=== PATIENT | female | born 1955 | race Caucasian/White ===

== ENCOUNTER 2019-01-05 08:23 | Emergency (ER) | payer OTHER ==
[~2019-01-05] VITALS: Ht 152.4 cm; Wt 56.8 kg
[2019-01-05 09:08] LABS: BASOPHILS % 0.4 % (0.0-2.0); EOSINOPHILS % 0.2 % (0.0-5.0); HEMATOCRIT. 40.7 % (36.0-48.0); HEMOGLOBIN. 13.8 g/dL (12.0-16.0); LYMPHOCYTES % 11.7 % (20.0-50.0); MEAN CORPUSCULAR HEMOGLOBIN 30.9 pg (28.0-32.0); MEAN PLATELET VOLUME 9.1 fl (7.4-10.4); MONOCYTES % 2.9 % (2.0-8.0); NEUTROPHILS % 84.8 % (40.0-76.0); PLATELET 232 x1000/uL (130-400); RED BLOOD CELL COUNT 4.47 mill/uL (4.2-5.4); RED CELL DISTRIBUTION WIDTH 12.6 % (11.6-14.6)
[2019-01-05] MEDS ORDERED: ALTEPLASE 10 MG in SODIUM CHLORIDE 0.9% 250 ML IV PRN (09:15)
[2019-01-05] MEDS ORDERED: ALTEPLASE 100MG/VIAL IV ONE (09:15)
[2019-01-05 09:17] LABS: INR 0.9; PROTHROMBIN TIME 9.8 sec (9.6-11.0)
[2019-01-05 09:19] LABS: CHLORIDE 103 mEq/L (98-107)
[2019-01-05 09:23] LABS: ETHANOL BLOOD < 10 mg/dL
[2019-01-05 09:26] LABS: LDL CHOLESTEROL 200 mg/dL (5-100)
[2019-01-05] MEDS ORDERED: WATER FOR INJECTION STERILE IV NR (09:30)
[2019-01-05] MEDS ORDERED: *NO ASPIRIN X 24 HOURS XX SCH (09:30)
[2019-01-05] MEDS ORDERED: ALTEPLASE IV NR (09:30)
[2019-01-05] MEDS ORDERED: ALTEPLASE 2MG/VIAL ITC NR (09:30)
[2019-01-05] MEDS ORDERED: IOHEXOL-350 100 ML BOTTLE ONE (14:15)
[2019-01-05 14:54] VITALS: BP 149/85
== END 2019-01-05 15:15 | disposition short-term general hospital (02) ==
LOC: ER 08:23 → CANBEDREQ 14:40 → ER 15:15
DX: I63.9 Cerebral infarction, unspecified (principal); R47.1 Dysarthria and anarthria; E11.65 Type 2 diabetes mellitus with hyperglycemia; R41.82 Altered mental status, unspecified; Z79.4 Long term (current) use of insulin; Z79.84 Long term (current) use of oral hypoglycemic drugs; Z86.73 Personal history of transient ischemic attack (TIA), and cerebral infarction without residual deficits
CPT/HCPCS: 36415; 70450; 70496; 70498; 71045; 80053; 80320; 82962; 83721; 84484; 85025; 85610; 93005; 99291; J2997; Q9967; G0480